=== PATIENT | female | born 1975 | race African-American/Black ===

== ENCOUNTER 2019-09-21 12:56 | Emergency (ER) | payer MEDICAID, OTHER ==
[~2019-09-21] VITALS: Ht 162.6 cm; Wt 62.0 kg
[2019-09-21] MEDS ORDERED: SODIUM CHLORIDE 0.9% 1,000 ML IV ONE (17:31)
[2019-09-21] MEDS ORDERED: KETOROLAC 15MG/ML VIAL IV ONE (17:45)
[2019-09-21 18:09] LABS: CHLORIDE 104 mEq/L (98-107)
[2019-09-21 18:18] LABS: BASOPHILS % 0.4 % (0.0-2.0); EOSINOPHILS % 1.4 % (0.0-5.0); HEMATOCRIT. 34.2 % (36.0-48.0); LYMPHOCYTES % 23.2 % (20.0-50.0); MEAN CORPUSCULAR HEMOGLOBIN 23.1 pg (28.0-32.0); MEAN CORPUSCULAR VOLUME 71.9 fL (81.0-99.0); MEAN PLATELET VOLUME 8.4 fl (7.4-10.4); MONOCYTES % 6.7 % (2.0-8.0); NEUTROPHILS % 68.3 % (40.0-76.0); PLATELET 252 x1000/uL (130-400); RED BLOOD CELL COUNT 4.75 mill/uL (4.2-5.4); RED CELL DISTRIBUTION WIDTH 13.9 % (11.6-14.6)
[2019-09-22] MEDS ORDERED: KETOROLAC 30MG/ML VIAL IV STA (02:25)
[2019-09-22] MEDS ORDERED: ACETAMINOPHEN 325MG TABLET PO ONE (15:30)
[2019-09-23] MEDS ORDERED: ACETAMINOPHEN 325MG TABLET PO ONE (08:00)
[2019-09-23 08:06] VITALS: BP 116/74
== END 2019-09-23 09:25 | disposition home or self-care (01) ==
LOC: ER 12:56
DX: R07.9 Chest pain, unspecified (principal); D57.1 Sickle-cell disease without crisis; F43.10 Post-traumatic stress disorder, unspecified; R51 Headache; Y08.89XA Assault by other specified means, initial encounter; Y93.9 Activity, unspecified; Y92.9 Unspecified place or not applicable; Z88.0 Allergy status to penicillin
CPT/HCPCS: 36415; 70450; 71045; 73060; 73090; 80053; 81025; 85025; 85044; 93005; 96361; 96374; 96376; 99284; J1885; J7030